=== PATIENT | male | born 1945 | race Caucasian/White ===

== ENCOUNTER 2018-08-18 13:13 | Observation (INO) | payer OTHER, MEDICARE ==
[~2018-08-18] VITALS: Ht 193 cm; Wt 79.4 kg
[~2018-08-18 13:13] MED LIST: HYDURE500 PO; MELA3 PO; METCAR500 PO
[2018-08-18] MEDS ORDERED: LUBRICANT 0.5-1 EACH BOTHEYES (13:34)
[2018-08-18] MEDS ORDERED: CLOP75 PO (13:35)
[2018-08-18] MEDS ORDERED: HYDURE500 PO (13:35)
[2018-08-18] MEDS ORDERED: SILDENAFIL CIT100 MG PO (13:36)
[2018-08-18] MEDS ORDERED: METCAR500 PO (13:36)
[2018-08-18] MEDS ORDERED: MELA3 PO (13:36)
[2018-08-18] MEDS ORDERED: Aqua Care71 GM TOP (13:37)
[2018-08-18] MEDS ORDERED: ATOR40TA PO (15:38)
--- NOTE | 2018-08-18 16:05 | NUR ---
PT ARRIVED AT APPROXIMATELY 1500. PT ALERT AND ORIENTED. WILL MONITOR UNTIL REPORT TO ONCOMING RN.
[2018-08-19 04:59] LABS: BASOPHILS ABSOLUTE AUTO 0.78 K/mm3 (0.00-0.23); BASOPHILS PERCENT AUTO 7 % (0-2); EOSINOPHILS ABSOLUTE AUTO 0.72 K/mm3 (0.00-0.68); EOSINOPHILS PERCENT AUTO 7 % (0-6); Hematocrit 44.9 % (37.0-53.0); Hemoglobin 14.4 g/dL (13.5-17.5); IMMATURE GRAN ABSOLUTE AUTO 0.21 K/mm3 (0.00-0.10); IMMATURE GRAN PERCENT AUTO 2 % (0-1); LYMPHOCYTES ABSOLUTE AUTO 1.43 K/mm3 (0.84-5.20); LYMPHOCYTES PERCENT AUTO 13 % (21-46); MONOCYTES PERCENT AUTO 9 % (4-13); Mean Corpuscular HGB 33.2 pg (26.0-34.0); Mean Corpuscular HGB Conc 32.1 g/dL (31.5-36.5); Mean Platelet Volume 9.8 fL (9.1-12.4); NEUTROPHILS ABSOLUTE AUTO 6.98 K/mm3 (1.96-9.15); NEUTROPHILS PERCENT AUTO 63 % (41-73); Platelet Count 325 K/mm3 (150-400); RDW Standard Deviation 63.7 fL (35.1-46.3); Red Blood Cell Count 4.34 M/mm3 (4.30-5.90); White Blood Cell Count 11.12 K/mm3 (4.00-11.30)
[2018-08-19 05:10] LABS: Mean Corpuscular Volume 104 fL (80-100)
[2018-08-19 05:31] LABS: Alanine Aminotransfer (ALT/SGP 47 U/L (12-78); Albumin, Blood 2.9 g/dL (3.4-5.0); Albumin/Globulin Ratio 1.1 (0.8-1.8); Alk Phos 68 U/L (50-136); Anion Gap 5 mmol/L (6-16); Aspartate Aminotrans (AST/SGOT 33 U/L (12-37); Bilirubin, Total 0.7 mg/dL (0.1-1.0); Blood Urea Nitrogen 8 mg/dL (8-24); Bun/Creatinine Ratio 10.1 (12.0-20.0); CO2, Blood 27 mmol/L (21-32); Calcium, Blood 8.1 mg/dL (8.5-10.1); Chloride, Blood 109 mmol/L (98-108); Creatinine, Blood 0.79 mg/dL (0.60-1.20); Globulin, Blood 2.7 g/dL (2.2-4.0); Glomerular Filtration Rate >60 (60-); Glucose, Blood 86 mg/dL (70-99); Potassium, Blood 3.6 mmol/L (3.5-5.5); Sodium, Blood 141 mmol/L (136-145); Total Protein, Blood 5.6 g/dL (6.4-8.2)
--- NOTE | 2018-08-19 06:10 | NUR ---
SHIFT SUMMARY LYING IN SEMI FOWLERS WITH EYES CLOSED. NO C/O PAIN OR DISCOMFORT THIS SHIFT. DENIES FURTHER NEEDS OR WANTS AT THIS TIME. SAFETY MEAUSRES IN PLACE. WILL GIVE HAND OFF TO ONCOMING SHIFT USING SBAR.
--- NOTE | 2018-08-19 11:32 | NUR ---
1100 PT UP IN ROOM AND VOIDS, AMBULATORY, FROM SURGICAL FLOOR TO SDS, CAOX4, VSS WITH BASELINE BIOX 93%, LUNGS CLEAR WITH DECREASED LS BASES, MAJOR CARDIA NOTED, NO OLK EKG IN SYSTEM OR ON CHART, [facility] CALLED FOR PRE-OP EKG, PT CONFIRMS NPO/PROCEDURE Ambulatory in Day Surgery Surgical site prepped with 2% Chlorhexidine cloth wipe. History, Chart, Medications and Allergies reviewed before start of procedure.Lungs clear T/O to Auscultation. Patient confirms NPO status and agrees with scheduled surgery. Pre-Op teaching done. Pt verbalizes understanding.
--- NOTE | 2018-08-19 17:22 | NUR ---
SHIFT SUMMARY PT A&OX4, VSS, S/P LAP KELSI, 3 STERI STRIPS/GAUZE, APPEAR CDI. PAIN MANAGED PER EMAR. SOFY CLEAR LIQ DIET, DENIES N&V. WILL ADVANCE TO REG FOR DINNER. FIANCEE AT BEDSIDE. WILL GIVE REPORT TO ONCOMING RN.
--- NOTE | 2018-08-19 17:56 | NUR ---
ASSUMED CARE OF PATIENT AT THIS TIME. PT SITTING UP IN BED EATING DINNER. VSS. NO VOID YET POST OP. MEDICATED FOR PAIN BY PREVIOUS RN. AT BEDSIDE.
[2018-08-20 05:44] LABS: Alanine Aminotransfer (ALT/SGP 45 U/L (12-78); Albumin/Globulin Ratio 1.1 (0.8-1.8); Alk Phos 66 U/L (50-136); Anion Gap 5 mmol/L (6-16); Aspartate Aminotrans (AST/SGOT 22 U/L (12-37); Bilirubin, Total 0.5 mg/dL (0.1-1.0); Blood Urea Nitrogen 9 mg/dL (8-24); Bun/Creatinine Ratio 10.9 (12.0-20.0); CO2, Blood 30 mmol/L (21-32); Calcium, Blood 8.5 mg/dL (8.5-10.1); Chloride, Blood 107 mmol/L (98-108); Creatinine, Blood 0.82 mg/dL (0.60-1.20); Globulin, Blood 2.7 g/dL (2.2-4.0); Glomerular Filtration Rate >60 (60-); Glucose, Blood 94 mg/dL (70-99); Potassium, Blood 3.6 mmol/L (3.5-5.5); Sodium, Blood 142 mmol/L (136-145); Total Protein, Blood 5.7 g/dL (6.4-8.2)
--- NOTE | 2018-08-20 06:36 | NUR ---
SHIFT SUMMARY LYING IN SEMI FOWLERS WITH EYES CLOSED. NO C/O PAIN OR DISCOMFORT THIS SHIFT. DENIES FURTHER NEEDS OR WANTS AT THIS TIME. LAP SITES X3 ARE C/D/I. SAFETY MEAUSRES IN PLACE. WILL GIVE HAND OFF TO ONCOMING SHIFT USING SBAR.
[2018-08-20] MEDS ORDERED: Norco 10-325 T1 EACH PO (10:48)
--- NOTE | 2018-08-20 11:09 | NUR ---
DISCHARGE PT EDUCATED ON AND RECEIVED PRINTED DC INSTRUCTIONS. BOTH AND PT VERBALIZED AN UNDERSTANDING. IV DC'D. HARD RX FOR NORCO GIVEN TO PT. PT LEFT WITH ALL PERSONAL BELONGINGS. FIONA DC'D BY DR. ASHRAF THIS AM.
== END 2018-08-20 11:06 | disposition home or self-care (01) ==
LOC: ER 13:13 → SURS 13:14
PROVIDERS: Surgery; ADMIT Internal Medicine
PROC: 0FT44ZZ Resection of Gallbladder, Percutaneous Endoscopic Approach (ICD-10-PCS; principal; 2018-08-19 12:00)
PROC: BF13YZZ Fluoroscopy of Gallbladder and Bile Ducts using Other Contrast (ICD-10-PCS; principal; 2018-08-19 12:00)
DX: K80.12 Calculus of gallbladder with acute and chronic cholecystitis without obstruction (principal); F17.200 Nicotine dependence, unspecified, uncomplicated; J44.9 Chronic obstructive pulmonary disease, unspecified; I71.2 Thoracic aortic aneurysm, without rupture; M54.9 Dorsalgia, unspecified; D75.1 Secondary polycythemia; G89.29 Other chronic pain; Q87.40 Marfan syndrome, unspecified; Z79.899 Other long term (current) drug therapy; Z79.02 Long term (current) use of antithrombotics/antiplatelets; Z86.73 Personal history of transient ischemic attack (TIA), and cerebral infarction without residual deficits
CPT/HCPCS: 36415; 74300; 80053; 85025; 88304; 93005; 93010; 96361; 96365; 96366; 96375; 96376; 99285; A9270-GY; C1729; G0378; J0694; J1100; J1170; J1610; J2250; J2405; J2704; J2710; J3010; J7030; J7120

== ENCOUNTER → 2018-09-24 | Outpatient (CLI) | payer MEDICARE ==
[~2018-09-24] MED LIST changes: +ATOR40TA PO; +Aqua Care71 GM TOP; +CLOP75 PO; +LUBRICANT 0.5-1 EACH BOTHEYES; +Norco 10-325 T1 EACH PO; +SILDENAFIL CIT100 MG PO
[2018-09-24 15:45] LABS: BASOPHILS PERCENT AUTO 7 % (0-2); EOSINOPHILS PERCENT AUTO 5 % (0-6); Hematocrit 47.8 % (37.0-53.0); Hemoglobin 15.6 g/dL (13.5-17.5); IMMATURE GRAN ABSOLUTE AUTO 0.07 K/mm3 (0.00-0.10); IMMATURE GRAN PERCENT AUTO 1 % (0-1); LYMPHOCYTES ABSOLUTE AUTO 1.29 K/mm3 (0.84-5.20); LYMPHOCYTES PERCENT AUTO 11 % (21-46); MONOCYTES ABSOLUTE AUTO 0.73 K/mm3 (0.16-1.47); MONOCYTES PERCENT AUTO 6 % (4-13); Mean Corpuscular HGB 32.3 pg (26.0-34.0); Mean Corpuscular HGB Conc 32.6 g/dL (31.5-36.5); Mean Corpuscular Volume 99 fL (80-100); Mean Platelet Volume 10.2 fL (9.1-12.4); NEUTROPHILS PERCENT AUTO 70 % (41-73); Platelet Count 441 K/mm3 (150-400); RDW Coefficient Variation 15.1 % (11.7-14.2); RDW Standard Deviation 54.4 fL (35.1-46.3); Red Blood Cell Count 4.83 M/mm3 (4.30-5.90); White Blood Cell Count 11.59 K/mm3 (4.00-11.30)
== END | disposition home or self-care (01) ==
LOC: LAB SHORT 15:34 → LAB 15:34
PROVIDERS: Internal Medicine Hematology & Oncology
DX: D45 Polycythemia vera (principal)
CPT/HCPCS: 85025

== ENCOUNTER 2022-12-27 10:46 | Day surgery (SDC) | payer OTHER ==
[~2022-12-27] VITALS: Ht 193 cm; Wt 74.3 kg
[2022-12-27] MEDS ORDERED: C COMPLEX1000 M1 (11:12)
[2022-12-27] MEDS ORDERED: ASPI81CH (11:13)
[2022-12-27] MEDS ORDERED: Vitamin D1000 UNI1 (11:13)
[2022-12-27] MEDS ORDERED: B-12500 MC2 (11:14)
[2022-12-27] MEDS ORDERED: MULTIPLE VITAM1 EACH (11:15)
[2022-12-27 14:10] VITALS: BP 125/76
== END 2022-12-27 14:06 | disposition home or self-care (01) ==
LOC: ORSCSDS 10:46
PROVIDERS: Internal Medicine Gastroenterology
PROC: 0DB58ZX Excision of Esophagus, Via Natural or Artificial Opening Endoscopic, Diagnostic (ICD-10-PCS; principal; 2022-12-27 12:00)
PROC: 0D757ZZ Dilation of Esophagus, Via Natural or Artificial Opening (ICD-10-PCS; principal; 2022-12-27 12:00)
PROC: 0DB28ZX Excision of Middle Esophagus, Via Natural or Artificial Opening Endoscopic, Diagnostic (ICD-10-PCS; principal; 2022-12-27 12:00)
PROC: 0DB68ZX Excision of Stomach, Via Natural or Artificial Opening Endoscopic, Diagnostic (ICD-10-PCS; principal; 2022-12-27 12:00)
DX: R13.10 Dysphagia, unspecified (principal); R63.4 Abnormal weight loss; K22.81 Esophageal polyp; J44.9 Chronic obstructive pulmonary disease, unspecified; Z87.11 Personal history of peptic ulcer disease; K22.89 Other specified disease of esophagus; I47.10 Supraventricular tachycardia, unspecified; E78.5 Hyperlipidemia, unspecified; R19.4 Change in bowel habit; Z68.20 Body mass index [BMI] 20.0-20.9, adult; F17.210 Nicotine dependence, cigarettes, uncomplicated; Z79.899 Other long term (current) drug therapy
CPT/HCPCS: 88305; 88312; 88342; J2001; J2704; J7120

== ENCOUNTER 2023-02-25 16:29 | Inpatient (IN) | payer OTHER ==
[~2023-02-25] VITALS: Ht 193 cm; Wt 77.0 kg
[~2023-02-25 16:29] MED LIST changes: +ASPI81CH PO; +B-12500 MC2; +BUSP5 PO; +C COMPLEX1000 M1 PO; +MULTIPLE VITAM1 EACH PO; +Miralax17 GM PO; +Neurontin 100100 MG PO; +Vitamin D1000 UNI1 PO
[2023-02-25 17:13] LABS: Hematocrit 29.1 % (37.0-53.0); Hemoglobin 9.1 g/dL (13.5-17.5); Mean Corpuscular HGB 25.7 pg (26.0-34.0); Mean Corpuscular HGB Conc 31.3 g/dL (31.5-36.5); Mean Corpuscular Volume 82 fL (80-100); NRBC ABSOLUTE 1.27 K/mm3 (0.00-0.02); NRBC Auto 8.2 /100 WBC (0.0-0.2); Platelet Count 57 K/mm3 (150-400); RDW Coefficient Variation 23.5 % (11.7-14.2); RDW Standard Deviation 67.2 fL (35.1-46.3); Red Blood Cell Count 3.54 M/mm3 (4.30-5.90); White Blood Cell Count 15.41 K/mm3 (4.00-11.30)
[2023-02-25 17:31] LABS: Albumin, Blood 2.1 g/dL (3.4-5.0); Albumin/Globulin Ratio 0.5 (0.8-1.8); Bilirubin, Total 0.8 mg/dL (0.1-1.0); Bun/Creatinine Ratio 32.1 (12.0-20.0); Calcium, Blood 10.1 mg/dL (8.5-10.1); Creatinine, Blood 0.59 mg/dL (0.60-1.20); Potassium, Blood 3.8 mmol/L (3.5-5.5); Total Protein, Blood 6.1 g/dL (6.4-8.2)
[2023-02-25 17:36] LABS: BAND PERCENT MAN 5 % (0-8); BASOPHILS ABSOLUTE MAN 0.46 K/mm3 (0.00-0.23); BASOPHILS PERCENT MAN 3 % (0-2); BLASTS PERCENT MAN 4 % (0-0); EOSINOPHILS PERCENT MAN 0 % (0-6); LYMPHOCYTES ABSOLUTE MAN 1.23 K/mm3 (0.84-5.20); LYMPHOCYTES PERCENT MAN 8 % (21-46); METAMYELOCYTE ABSOLUTE MAN 1.07 K/mm3 (0.00-0.00); METAMYELOCYTE PERCENT MAN 7 % (0-0); MONOCYTES ABSOLUTE MAN 1.23 K/mm3 (0.16-1.47); MONOCYTES PERCENT MAN 8 % (4-13); MYELOCYTE PERCENT MAN 2 % (0-0); NEUTROPHILS ABSOLUTE MAN 10.47 K/mm3 (1.96-9.15); SEG NEUTROPHILS PERCENT MAN 63 % (41-73); TOTAL CELLS COUNTED 100
[2023-02-25] MEDS ORDERED: METO25ER PO (18:12)
[2023-02-25 18:18] LABS: Source, Urine Clean Catch
[2023-02-25 18:20] LABS: Bilirubin, Urine Neg (Neg); Blood, Urine Neg (Neg); Glucose Qualitative, Urine Neg (Neg); Ketones, Urine Neg (Neg); Leukocyte Esterase, Urine Neg (Neg); Nitrite, Urine Neg (Neg); Protein, Urine 2+ (Neg); Specific Gravity, Urine 1.025 (1.003-1.022); Urobilinogen, Urine NORM (Normal)
[2023-02-25 18:26] LABS: Color, Urine Yellow (P-Yellow)
[2023-02-25 18:27] LABS: Appearance, Urine Hazy (Clear); Bacteria Rare /hpf; Squamous Epithelial Cells Rare /hpf (Few); White Blood Cells, Urine 0-2 /hpf (0-5)
[2023-02-25 18:28] LABS: Amorphous Light (0-Heavy); Hyaline Casts 0-2 /lpf (0-2); Mucus Light (0-Heavy)
[2023-02-25 23:00] VITALS: BP 126/78
--- NOTE | 2023-02-26 04:21 | NUR ---
PT. ADMITTED LAST NIGHT. TYLENOL GIVEN FOR BACK PAIN. NS @100 ML/HR. 2 PIV SITES. A&O X4. HERE FOR WEAKNESS. USES THE URINAL TO VOID. BED IN LOW POSITION. CALL LIGHT WITHIN REACH.
[2023-02-26 04:58] LABS: Hematocrit 27.6 % (37.0-53.0); Hemoglobin 8.2 g/dL (13.5-17.5); Mean Corpuscular HGB Conc 29.7 g/dL (31.5-36.5); Mean Corpuscular Volume 84 fL (80-100); NRBC ABSOLUTE 0.99 K/mm3 (0.00-0.02); NRBC Auto 6.3 /100 WBC (0.0-0.2); RDW Coefficient Variation 23.2 % (11.7-14.2); RDW Standard Deviation 68.5 fL (35.1-46.3); Red Blood Cell Count 3.28 M/mm3 (4.30-5.90)
[2023-02-26 05:00] VITALS: BP 121/77
[2023-02-26 05:10] LABS: Platelet Count 45 K/mm3 (150-400)
[2023-02-26 05:26] LABS: Bun/Creatinine Ratio 27.7 (12.0-20.0); Creatinine, Blood 0.58 mg/dL (0.60-1.20); Magnesium, Blood 2.2 mg/dL (1.6-2.4); Potassium, Blood 3.3 mmol/L (3.5-5.5); Thyroid Stimulating Hormone 0.975 uIU/mL (0.360-4.800)
[2023-02-26 05:49] LABS: BAND PERCENT MAN 8 % (0-8); BASOPHILS ABSOLUTE MAN 0.15 K/mm3 (0.00-0.23); BASOPHILS PERCENT MAN 1 % (0-2); EOSINOPHILS PERCENT MAN 0 % (0-6); LYMPHOCYTES % ATYPICAL MANUAL 2 % (0-0); LYMPHOCYTES ABSOLUTE MAN 2.02 K/mm3 (0.84-5.20); LYMPHOCYTES PERCENT MAN 11 % (21-46); METAMYELOCYTE ABSOLUTE MAN 0.62 K/mm3 (0.00-0.00); METAMYELOCYTE PERCENT MAN 4 % (0-0); MONOCYTES ABSOLUTE MAN 0.31 K/mm3 (0.16-1.47); MONOCYTES PERCENT MAN 2 % (4-13); MYELOCYTE ABSOLUTE MAN 0.31 K/mm3 (0.00-0.00); MYELOCYTE PERCENT MAN 2 % (0-0); NEUTROPHILS ABSOLUTE MAN 11.38 K/mm3 (1.96-9.15); SEG NEUTROPHILS PERCENT MAN 65 % (41-73); TOTAL CELLS COUNTED 100
[2023-02-26 05:50] LABS: BLASTS PERCENT MAN 5 % (0-0)
[2023-02-26 08:14] VITALS: BP 126/87
[2023-02-26 10:24] LABS: PCO2 Arterial 41.5 mmHg (35-45); PO2 Arterial 80.1 mmHg (80-100); pH Blood Arterial 7.42 (7.35-7.45)
--- NOTE | 2023-02-26 11:00 | NUR ---
PT WITH SATS IN THE 70-80'S ON 2L/M, IN RESP DISTRESS. INCREASED O2 TO 8L/M AND CALLED RT FOR NEB TX. LS VERY DIMINISHED WHEN LISTENED TO ANTERIORLY. HEART RATE BETWEEN 121-156. CALLED MD ABOUT RESP DISTRESS AND ELEVATED HEART RATE. RT EXPRESSED CONCERN FOR PT USING ACCESSARY MUSCLES WITH RESP AND RESP ARE ALSO IN THE 30'S. PT HAD COUGHED THIS MORNING WHEN TAKING HIS MEDS AND HE STATED HE WAS FINE. CONCERNED FOR ASPIRATION. ABG AND CHEST XRAY COMPLETED. SHORTLY AFTER COUGHING SEVERAL TIMES DEEPLY SATS STARTED TO GO UP AND O2 NEEDS DROPPED. DISTRESS STARTED TO EASE AND BEGAN TO BREATHE EASIER. O2 NOW AT 4/M WITH SATS IN MID 90'S AND BREATHING EASILY. DOZING WITH NO DISTRESS.
--- NOTE | 2023-02-26 16:11 | NUR ---
Spiritual care visit conducted. Patient is quite somber and begins a dialogue about the reasons why he feels he will being dying soon. Then, family walk in, RT, walks in and pt's RN walks in. I talk with family for a few minutes but there is much activity and a change of topic and patient focuses else where. I provide encouragement and a calming presence and will attempt a find a more appropriate moment to speak about the matters of the patient's heart.
[2023-02-26 16:49] VITALS: BP 121/81
--- NOTE | 2023-02-26 18:04 | NUR ---
SHIFT SUMMARY PT HAS HAD NO FURTHER RESP DISTRESS TODAY. SEEN BY WAX PUMPER WITH FEEDING PLAN IN PLACE. AWAKE AND ALERT THROUGH THE DAY. AND FRIEND AT BEDSIDE MOST OF DAY. PT ABLE TO MOVE SELF ABOUT IN BED SLOWLY. DIAPHORETIC AND REPORTS FEELING HOT ON AND OFF TODAY. SWEAT THROUGH THE SHEETS. MEDICATED FOR BACK PAIN WITH MININAL EFFECT.
[2023-02-26 20:18] VITALS: BP 109/56
--- NOTE | 2023-02-27 03:32 | NUR ---
RECEIVED CALL FROM TELEMETRY THAT PATIENT HEART RATE IN 170S. CHECKED ON PATIENT. HE WAS SITTING ON SIDE OF BED. BACK IN BED. PATIENT VOIDED 100 ML. INCREASED WORK OF BREATHING. O2 UP TO 5L NC AT 90%. CALLED RT. RT CAME AND EVALUATED. CALLED MD FOR ORDER FOR CONTINUOUS NEBULIZER AND IV LASIX. BOTH WERE GIVEN. MD CAME TO SEE PATIENT. CHEST X-RAY, BNP, AND BIPAP ORDERED. CONTINUE TO MONITOR.
[2023-02-27 04:17] VITALS: BP 100/87
[2023-02-27 04:18] LABS: Hematocrit 29.5 % (37.0-53.0); Hemoglobin 9.1 g/dL (13.5-17.5); Mean Corpuscular HGB 25.2 pg (26.0-34.0); Mean Corpuscular HGB Conc 30.8 g/dL (31.5-36.5); Mean Corpuscular Volume 82 fL (80-100); NRBC ABSOLUTE 1.63 K/mm3 (0.00-0.02); NRBC Auto 10.1 /100 WBC (0.0-0.2); RDW Coefficient Variation 23.3 % (11.7-14.2); RDW Standard Deviation 66.3 fL (35.1-46.3); Red Blood Cell Count 3.61 M/mm3 (4.30-5.90); White Blood Cell Count 16.14 K/mm3 (4.00-11.30)
[2023-02-27 04:24] LABS: Platelet Count 43 K/mm3 (150-400)
[2023-02-27 04:37] LABS: Albumin, Blood 1.8 g/dL (3.4-5.0); Albumin/Globulin Ratio 0.5 (0.8-1.8); Bilirubin, Total 0.9 mg/dL (0.1-1.0); Calcium, Blood 9.1 mg/dL (8.5-10.1); Creatinine, Blood 0.7 mg/dL (0.60-1.20); Globulin, Blood 3.8 g/dL (2.2-4.0); Magnesium, Blood 2.1 mg/dL (1.6-2.4); Phosphorus, Blood 4.5 mg/dL (2.5-4.9); Potassium, Blood 3.4 mmol/L (3.5-5.5); Total Protein, Blood 5.6 g/dL (6.4-8.2)
[2023-02-27 04:47] LABS: BAND PERCENT MAN 5 % (0-8); BASOPHILS ABSOLUTE MAN 0.32 K/mm3 (0.00-0.23); BASOPHILS PERCENT MAN 2 % (0-2); BLASTS PERCENT MAN 2 % (0-0); EOSINOPHILS ABSOLUTE MAN 0.32 K/mm3 (0.00-0.68); EOSINOPHILS PERCENT MAN 2 % (0-6); LYMPHOCYTES % ATYPICAL MANUAL 3 % (0-0); LYMPHOCYTES PERCENT MAN 15 % (21-46); METAMYELOCYTE ABSOLUTE MAN 0.32 K/mm3 (0.00-0.00); METAMYELOCYTE PERCENT MAN 2 % (0-0); MONOCYTES PERCENT MAN 0 % (4-13); MYELOCYTE ABSOLUTE MAN 0.64 K/mm3 (0.00-0.00); MYELOCYTE PERCENT MAN 4 % (0-0); NEUTROPHILS ABSOLUTE MAN 11.29 K/mm3 (1.96-9.15); SEG NEUTROPHILS PERCENT MAN 65 % (41-73); TOTAL CELLS COUNTED 100
--- NOTE | 2023-02-27 05:14 | NUR ---
NOC SHIFT SUMMARY: PT. HAD INCREASED WORK OF BREATHING THIS AM. LASIX 40 MG IV GIVEN. CONTINUOUS NEBULIZER GIVEN. PATIENT IS NOW ON BIPAP. BREATHING MUCH EASIER. CONDOM CATH IN PLACE. NORCO GIVEN TWICE FOR PAIN CONTROL. ?SNF PLACEMENT. BED IN LOW POSITION. CALL LIGHT WITHIN REACH.
[2023-02-27 07:36] VITALS: BP 112/66
[2023-02-27 16:43] VITALS: BP 119/81
--- NOTE | 2023-02-27 18:24 | NUR ---
SHIFT SUMMARY PATIENT IS ALERT AND ORIENTED. PATIENT HAS HAD NO ACUTE EVENTS THIS SHIFT. VITAL SIGNS REVIEWED. PATIENT HAS BEEN SINUS TACH ALL SHIFT. DR AWARE. PATIENT HAS NOT COMPLAINED OF SOB, NAUSEA OR VOMITTING THIS SHIFT. PATIENT HAS COMPLAINED OF PAIN, MEDICATED PER EMAR. PATIENT HAS HAD TEMP THIS SHIFT AND MEDICATED PER EMAR. PATIENT STILL ON 3L. BED IN LOCKED AND LOWEST POSITION. CALL LIGHT IN PLACE. WILL MONITOR UNTIL SHIFT CHANGE.
[2023-02-27 20:09] VITALS: BP 116/71
[2023-02-28 03:21] VITALS: BP 146/94
--- NOTE | 2023-02-28 04:10 | NUR ---
SHIFT SUMMARY *KVNG* WAS DROWSY AND FULLY ORIENTED ON ASSESSMENT. PT ON CONT BIOX AND TELE. PT RUNNING SINUS TACHY ALL NIGHT HOVERING 110'S - 130'S OCCASIONALLY SPIKING INTO THE 170'S FOR VERY BRIEF PERIODS BEFORE DROPPING BACK DOWN. PT DENIES C/P/PRESSURE TONIGHT, AND IS MAINTAINING O2 SATS IN THE HIGH 90'S ON CPAP, DESATS RAPIDLY WHEN MASK IS REMOVED. I CALLED THE HOSPITALIS AND GOT AN ORDER FOR 5MG IV LOPRESSOR, AT THIS TIME PT'S HR HAS DROPPED INTO SINUS IN THE 70'S, WILL CONTINUE TO MONITOR. PT RESTING IN BED AT A LOW POSITION WITH THE CALL LIGHT IN REACH
[2023-02-28 04:46] LABS: Hematocrit 28.7 % (37.0-53.0); Hemoglobin 8.8 g/dL (13.5-17.5); Mean Corpuscular HGB 25.3 pg (26.0-34.0); Mean Corpuscular HGB Conc 30.7 g/dL (31.5-36.5); Mean Corpuscular Volume 83 fL (80-100); NRBC ABSOLUTE 3.31 K/mm3 (0.00-0.02); NRBC Auto 14.2 /100 WBC (0.0-0.2); RDW Coefficient Variation 23.3 % (11.7-14.2); RDW Standard Deviation 66.9 fL (35.1-46.3); Red Blood Cell Count 3.48 M/mm3 (4.30-5.90); White Blood Cell Count 23.33 K/mm3 (4.00-11.30)
[2023-02-28 04:57] LABS: Platelet Count 38 K/mm3 (150-400)
[2023-02-28 05:11] LABS: Bun/Creatinine Ratio 23.8 (12.0-20.0); Calcium, Blood 9.7 mg/dL (8.5-10.1); Creatinine, Blood 0.71 mg/dL (0.60-1.20); Potassium, Blood 3.3 mmol/L (3.5-5.5)
[2023-02-28 05:30] LABS: BAND PERCENT MAN 5 % (0-8); BASOPHILS ABSOLUTE MAN 0.46 K/mm3 (0.00-0.23); BASOPHILS PERCENT MAN 2 % (0-2); BLASTS PERCENT MAN 11 % (0-0); EOSINOPHILS ABSOLUTE MAN 0.23 K/mm3 (0.00-0.68); EOSINOPHILS PERCENT MAN 1 % (0-6); LYMPHOCYTES % ATYPICAL MANUAL 2 % (0-0); LYMPHOCYTES ABSOLUTE MAN 1.16 K/mm3 (0.84-5.20); LYMPHOCYTES PERCENT MAN 3 % (21-46); MONOCYTES ABSOLUTE MAN 1.16 K/mm3 (0.16-1.47); MONOCYTES PERCENT MAN 5 % (4-13); MYELOCYTE ABSOLUTE MAN 1.16 K/mm3 (0.00-0.00); MYELOCYTE PERCENT MAN 5 % (0-0); NEUTROPHILS ABSOLUTE MAN 16.33 K/mm3 (1.96-9.15); PROMYELOCYTE ABSOLUTE MAN 0.23 K/mm3 (0.00-0.00); PROMYELOCYTE PERCENT MAN 1 % (0-0); SEG NEUTROPHILS PERCENT MAN 65 % (41-73); TOTAL CELLS COUNTED 100
[2023-02-28 07:18] VITALS: BP 103/69
[2023-02-28 15:22] VITALS: BP 111/78
--- NOTE | 2023-02-28 19:17 | NUR ---
SHIFT SUMMARY PT A&OX4. PT SOMNOLENT TODAY. PT C/O BACK PAIN IN AFTERNOON. REPOSITIONED AND MEDICATED PER EMAR. PT'S OXYGEN SATRUATION DROPPED IN AFTERNOON TO ABOUT 83%. OXYGEN INCREASED IN INCREMENTS TO 6L. PT CONTINUED TO MAINTAIN 83%. RT CALLED AND PT PLACED ON BACK ON BIPAP. SATURATION IMPROVED TO HIGH 90'S. ATTEMPTED TO PLACE PT BACK ON NC APPROXIMENTLY AN HOUR LATER BUT SATS DROPPED BACK TO 80'S. AT BEDSIDE. VSS. CONTINUING IV ABX TX. BED IN LOWEST POSITION AND CALL LIGHT IN REACH.
[2023-02-28 19:20] VITALS: BP 104/64
[2023-03-01 03:51] VITALS: BP 119/77
[2023-03-01 05:20] LABS: Hematocrit 25.9 % (37.0-53.0); Hemoglobin 7.8 g/dL (13.5-17.5); Mean Corpuscular HGB 24.8 pg (26.0-34.0); Mean Corpuscular HGB Conc 30.1 g/dL (31.5-36.5); Mean Corpuscular Volume 82 fL (80-100); NRBC ABSOLUTE 0.88 K/mm3 (0.00-0.02); NRBC Auto 5.5 /100 WBC (0.0-0.2); RDW Coefficient Variation 22.8 % (11.7-14.2); RDW Standard Deviation 65.4 fL (35.1-46.3); Red Blood Cell Count 3.15 M/mm3 (4.30-5.90); White Blood Cell Count 16.11 K/mm3 (4.00-11.30)
[2023-03-01 05:35] LABS: Bun/Creatinine Ratio 32.3 (12.0-20.0); Calcium, Blood 10.1 mg/dL (8.5-10.1); Creatinine, Blood 0.65 mg/dL (0.60-1.20); Potassium, Blood 3.1 mmol/L (3.5-5.5)
[2023-03-01 05:52] LABS: Platelet Count 23 K/mm3 (150-400)
--- NOTE | 2023-03-01 06:20 | NUR ---
NURSE NOTE LAB INFORMED THIS RN ABOUT LOW PLATELET COUNT. ATTEMPTED TO CONTACT HOSPITALIST. WILL INFORM ONCOMING RN.
--- NOTE | 2023-03-01 06:26 | NUR ---
NURSE NOTE DR AWARE OF LOW PLATELETS
--- NOTE | 2023-03-01 06:38 | NUR ---
NURSE NOTE THIS RN WAS NOTIFIED ABOUT SUSTAINED HEART RATE BY TELEMONITOR. CALLED HOSPITALIST WITHOUT SUCCESS. WILL TRY AGAIN.
[2023-03-01 07:38] VITALS: BP 124/82
--- NOTE | 2023-03-01 14:55 | NUR ---
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 IV REMOVED PRIOR. WOUND VAC DISCONNECTED BUT DRESSING STILL ON. [facility] WITH NO ANSWER. PATIENT WAS EXPRESSING CONCERNS REGARDING NOT BEING ON IV ABX WHILE GOING TO REHAB, EDUCATION PROVIDED VERBALLY, ACKNOWLEDGED UNDERSTANDING.
[2023-03-01 16:13] VITALS: BP 112/83
--- NOTE | 2023-03-01 18:49 | NUR ---
SHIFT SUMMARY DR WOLFE CONVERSATED WITH PATIENT AND FAMILY WHO ARE SEEKING END OF LIFE TREATMENT PLAN, PALLIATIVE CONSULTED WITH PATIENT AND FAMILY WELL. CHANGED CODE STATUS THIS SHIFT TO DNR, COMFORT CARE ORDERS TO FOLLOW. PATIENT WORK OF BREATHING NOT WORSE WHEN NOT USING BIPAP, HOWEVER, HEART RATE DOES BECOME MORE ELEVATED. SINCE VISIT WITH DOC, PATIENT HAS BEEN DECLINING BIPAP. FAMILY STATED HE APPEARS TO BE MORE COMFORTABLE WITHOUT IT ON. TELE AND CONTINUOUS PULSE OX D/C. PLAN IS FOR PALLIATIVE TO FACILITATE HOME WITH WHATEVER AGENCY CAN BE THE QUICKEST. WILL CONTIUE TO MONITOR
[2023-03-01 19:53] VITALS: BP 119/79
[2023-03-02 04:13] VITALS: BP 119/81
[2023-03-02 05:06] LABS: Hematocrit 25.8 % (37.0-53.0); Hemoglobin 7.7 g/dL (13.5-17.5); Mean Corpuscular HGB 25.1 pg (26.0-34.0); Mean Corpuscular HGB Conc 29.8 g/dL (31.5-36.5); Mean Corpuscular Volume 84 fL (80-100); NRBC ABSOLUTE 0.77 K/mm3 (0.00-0.02); NRBC Auto 4.2 /100 WBC (0.0-0.2); RDW Coefficient Variation 22.9 % (11.7-14.2); RDW Standard Deviation 67.4 fL (35.1-46.3); Red Blood Cell Count 3.07 M/mm3 (4.30-5.90); White Blood Cell Count 18.28 K/mm3 (4.00-11.30)
[2023-03-02 05:17] LABS: Platelet Count 16 K/mm3 (150-400)
[2023-03-02 05:30] LABS: Bun/Creatinine Ratio 44.6 (12.0-20.0); Calcium, Blood 11.4 mg/dL (8.5-10.1); Creatinine, Blood 0.56 mg/dL (0.60-1.20); Magnesium, Blood 2.4 mg/dL (1.6-2.4); Potassium, Blood 3.2 mmol/L (3.5-5.5)
--- NOTE | 2023-03-02 05:34 | NUR ---
report received verified. is appropriate yet quiet currently has no complaints. nc at 5L. laying quietly in bed with difficulty breathing. a bedside and explained to me that she would like to get pt home to there, and to please give pain medication to pt. pt complaining no of generalized pain. pt medicated with oralmeds, swallow intact. i spoke with md and was able to order pt liquid oral pain medication which he skyler very well and also seemed to work better for pt. pt doing much better vital signs are doing well. plat count came back critical low at 16. discussed with charge nurse no urgent orderes needed since pt heading home soon, will cont monitoring.
--- NOTE | 2023-03-02 13:02 | NUR ---
PHYSICIAN CONTACT VERIFIED WITH CHARGE NURSE, ABSENT HEART SOUNDS, ABSENT PULSES, ABSENT RESPIRATORY FUNCTION AT 1250. CALLED DR WOLFE TO NOTIFY AT 1255. FAMILY PRESENT IN ROOM AT THIS TIME. [facility] CHOSEN TO RADIOLOGY SPECIAL PROCEDURE TECH. PALLIATIVE NOTIFIED. WILL CONTINUE TO MONITOR
--- NOTE | 2023-03-02 15:40 | NUR ---
SHIFT SUMMARY MARK PICKED UP PATIENT, JOSH TO TRANSFER. ASSISTED WITH SLIDE TO MONALISA. CHARGE MADE AWARE.
== END 2023-03-02 12:50 | DRG 871 ==
LOC: ER 16:29 → MEDS 22:04
PROVIDERS: Internal Medicine; Nurse Practitioner Acute Care; Physician Assistant; ADMIT Student in an Organized Health Care Education/Training Program
PROC: 5A09457 Assistance with Respiratory Ventilation, 24-96 Consecutive Hours, Continuous Positive Airway Pressure (ICD-10-PCS; principal; 2023-02-27)
PROC: 3E03329 Introduction of Other Anti-infective into Peripheral Vein, Percutaneous Approach (ICD-10-PCS; 2023-02-27)
PROC: 4A033R1 Measurement of Arterial Saturation, Peripheral, Percutaneous Approach (ICD-10-PCS; 2023-02-27)
DX: A41.9 Sepsis, unspecified organism (principal); I50.43 Acute on chronic combined systolic (congestive) and diastolic (congestive) heart failure; J18.9 Pneumonia, unspecified organism; J96.21 Acute and chronic respiratory failure with hypoxia; J69.0 Pneumonitis due to inhalation of food and vomit; Q87.410 Marfan syndrome with aortic dilation; J44.0 Chronic obstructive pulmonary disease with (acute) lower respiratory infection; R65.20 Severe sepsis without septic shock; Z51.5 Encounter for palliative care; I11.0 Hypertensive heart disease with heart failure; D45 Polycythemia vera; M54.9 Dorsalgia, unspecified; F41.9 Anxiety disorder, unspecified; I71.40 Abdominal aortic aneurysm, without rupture, unspecified; D69.6 Thrombocytopenia, unspecified; G47.00 Insomnia, unspecified; I48.0 Paroxysmal atrial fibrillation; D64.9 Anemia, unspecified; G62.9 Polyneuropathy, unspecified; Z99.81 Dependence on supplemental oxygen; Z88.8 Allergy status to other drugs, medicaments and biological substances; Z79.82 Long term (current) use of aspirin; Z79.899 Other long term (current) drug therapy; Z87.891 Personal history of nicotine dependence; Z90.49 Acquired absence of other specified parts of digestive tract; Z86.79 Personal history of other diseases of the circulatory system; Z71.6 Tobacco abuse counseling
CPT/HCPCS: 36415; 36600; 71045; 71260; 80048; 80053; 81001; 82803; 82947; 83605; 83735; 83880; 84100; 84145; 84443; 84484; 85025; 85027; 87040; 92526; 92610; 93005; 93010; 93306; 94640; 94644; 94660; 94664; 94762; 96361; 96365; 96366; 96368; 99285-25; A9270; J0456; J0696; J1940; J2060; J2543; J3480; J7030; J7050; P9047; Q9967